=== PATIENT | female | born 1955 | race Caucasian/White ===

== ENCOUNTER → 2016-11-13 | Outpatient (CLI) | payer BC, OTHER ==
--- NOTE | 2016-11-13 17:55 | MA ---
Screening Digital Mammogram, With Tomosynthesis and iCAD Indication: Routine screening. Mother diagnosed with breast cancer in her her 70s. Sister diagnose d with breast cancer in her 30s. Technique: Standard digital CC projections were obtained. Digital breast tomosynthesis was performe d in the MLO projection with reconstruction at 1.0-mm slice thickness. Composite MLO views were catrachito nstructed. This examination was processed by the iCAD computer-aided detection system. Comparison: October 2015, September 2014, June 2013, and June 2011. Breast Density: Type B. Findings: CAD was reviewed. No suspicious microcalcifications, mass, or architectural distortion. Impression: Negative mammogram. BI-RADS: 1 - Negative. Recommendation: Routine screening is recommended in one year. [facility] will send [facility] result letter to the patient. Negative mammography should not preclude additional workup of a clinically suspicious finding. The patient's information is entered into a reminder system with a target due date for her next mammo gram.
== END ==
LOC: FIMAGING 14:44
DX: Z12.31 Encounter for screening mammogram for malignant neoplasm of breast (principal); Z80.3 Family history of malignant neoplasm of breast
CPT/HCPCS: G0202

== ENCOUNTER → 2017-01-28 | Outpatient (CLI) | payer BC | LOC: BMCIMAGING 17:04 | PROVIDERS: ATTEND Family Medicine | DX: S52.501A Unspecified fracture of the lower end of right radius, initial encounter for closed fracture (principal) ==

== ENCOUNTER → 2017-01-28 | Outpatient (CLI) | payer BC | LOC: BMCIMAGING 15:54 | PROVIDERS: ATTEND Family Medicine | DX: S52.571A Other intraarticular fracture of lower end of right radius, initial encounter for closed fracture (principal) ==

== ENCOUNTER → 2017-02-08 | Outpatient (CLI) | payer BC | LOC: BMCIMAGING 09:20 | PROVIDERS: ATTEND Physician Assistant | DX: S52.551A Other extraarticular fracture of lower end of right radius, initial encounter for closed fracture (principal); X58.XXXA Exposure to other specified factors, initial encounter ==

== ENCOUNTER → 2017-03-19 | Outpatient (CLI) | payer BC | LOC: BMCIMAGING 09:50 | PROVIDERS: ATTEND Physician Assistant | DX: S52.501D Unspecified fracture of the lower end of right radius, subsequent encounter for closed fracture with routine healing (principal) ==

== ENCOUNTER → 2017-04-17 | Outpatient (CLI) | payer BC | LOC: BMCIMAGING 09:13 | PROVIDERS: ATTEND Physician Assistant | DX: S52.501D Unspecified fracture of the lower end of right radius, subsequent encounter for closed fracture with routine healing (principal) ==

== ENCOUNTER → 2017-11-19 | Outpatient (CLI) | payer BC | LOC: FIMAGING 16:06 | PROVIDERS: ATTEND Internal Medicine | DX: Z12.31 Encounter for screening mammogram for malignant neoplasm of breast (principal); Z80.3 Family history of malignant neoplasm of breast ==

== ENCOUNTER → 2018-12-03 | Outpatient (CLI) | payer BC | LOC: FIMAGING 14:41 | PROVIDERS: ATTEND Internal Medicine | DX: Z12.31 Encounter for screening mammogram for malignant neoplasm of breast (principal); Z80.3 Family history of malignant neoplasm of breast ==